=== PATIENT | male | born 1965 | race Caucasian/White ===

== ENCOUNTER 2019-07-19 07:45 | Day surgery (SDC) | payer OTHER ==
[2019-07-17 10:35] VITALS: BMI 32.8
[2019-07-19 08:09] VITALS: TEMP 97.2
[2019-07-19] MEDS ORDERED: LACTATED RINGERS 1,000 ML IV ONE (08:15)
[2019-07-19] MEDS ORDERED: LIDOCAINE 1% 20 ML VIAL (10MG/ML) FOR IV START INTRADERMA ONE (08:15)
[2019-07-19] MEDS ORDERED: LIDOCAINE 1% INJ 10MG/ML (20 ML MDV) ONE (08:33)
[2019-07-19] MEDS ORDERED: PROPOFOL 10 MG/ML 20 ML VIAL IV ONE (08:33)
--- NOTE | 2019-07-19 08:37 | P.GSHP ---
History of Present Illness H&P Date: 07/19/19 Chief Complaint: Screening colonoscopy, epigastric pain This is a 53-year-old male who presents today for screening colonoscopy. Patient also had complaints of epigastric pain. He will undergo EGD as well today. Past Medical History Past Medical History: Chest Pain / Angina, GERD/Reflux, Sleep Apnea/CPAP/BIPAP Additional Past Medical History / Comment(s): STATES CHEST PAIN/HEARTBURN- HAD STRESS TEST WITH DR KINSEY., TAKES TUMS PRN, FEELS LIKE FOOD GETS STUCK AND HAS TO FOLLOW WITH LIQUIDS., BACK PAIN, HERNIATED DISCS, SLEEP APNEA (C-PAP BROKEN), SOME HEARING LOSS DUE TO SERVICE. History of Any Multi-Drug Resistant Organisms: None Reported Past Surgical History: No Surgical Hx Reported Additional Past Anesthesia/Blood Transfusion Reaction / Comment(s): HAS NEVER RECEIVED ANESTHESIA. Past Psychological History: No Psychological Hx Reported Smoking Status: Never smoker Past Alcohol Use History: Daily Additional Past Alcohol Use History / Comment(s): USUALLY DRINKS 1-2 GLASSES WINE OR BEER. Past Drug Use History: None Reported - Past Family History Mother Family Medical History: No Reported History Medications and Allergies Home Medications Medication Instructions Recorded Confirmed Type Calcium Carbonate [Tums] 1,000 mg PO DIRECTED PRN 07/17/19 07/19/19 History Honey B Supplent 1 tab PO DAILY 07/17/19 07/19/19 History Naproxen 500 mg PO DIRECTED PRN 07/17/19 07/19/19 History Otc "Brain Supplement " 1 tab PO DAILY 07/17/19 07/19/19 History Allergies Allergy/AdvReac Type Severity Reaction Status Date / Time No Known Allergies Allergy Verified 07/19/19 08:04 Surgical - Exam Vital Signs Temp Pulse Resp BP Pulse Ox 97.2 F L 74 16 137/86 92 L 07/19/19 08:08 07/19/19 08:08 07/19/19 08:08 07/19/19 08:08 07/19/19 08:08 - General well developed, well nourished, no distress - Eyes PERRL - ENT normal pinna - Neck no masses - Respiratory normal expansion - Cardiovascular Rhythm: regular - Abdomen Abdomen: soft, non tender Assessment and Plan Assessment: We'll perform screening colonoscopy and EGD for epigastric abdominal pain.
--- NOTE | 2019-07-19 08:54 | P.OP ---
Date of Procedure: 07/19/19 Preoperative Diagnosis: GERD Screening colonoscopy Postoperative Diagnosis: Antral gastritis Moderate size hiatal hernia Severe erosive esophagitis Procedure(s) Performed: EGD Screen colonoscopy Anesthesia: MAC Surgeon: Tomas Dickson Pathology: other (Antral esophagus) Condition: stable Disposition: PACU Operative Findings: The patient's placed on the endoscopy table in the lateral position. He received IV sedation. The gastroscope placed oropharynx passed in the esophagus and stomach. Scope was then placed through the pylorus. The first and second portion of duodenum appeared normal. Scope was then brought back the antrum this was mildly inflamed. A biopsies performed. Scope was unretroflexed and remainder stomach appeared normal. The scope was then retroflexed and there was a moderate size hiatal hernia. The GE junction was at 38 cm. The distal esophagus was examined. There was erosive esophagitis. This area is biopsied. The proximal esophagus. Normal. Scope was withdrawn for patient. Next,. Digital rectal examination was performed which revealed no abnormalities. The prostate was symmetrical without nodules. Flexible colonoscope was then placed in the patient's anus and passed throughout the entire colon. The ileocecal valve was visualized. The cecum, ascending, transverse, descending and sigmoid colon were normal. The rectum was normal as well. There were no masses, polyps or diverticula noted in the entire colon. Description of Procedure: The patient's placed on the endoscopy table in the lateral position. He received IV sedation. The gastroscope placed oropharynx passed in the esophagus and stomach. Scope was then placed through the pylorus. The first and second portion of duodenum appeared normal. Scope was then brought back the antrum this was mildly inflamed. A biopsies performed. Scope was unretroflexed and remainder stomach appeared normal. The scope was then retroflexed and there was a moderate size hiatal hernia. The GE junction was at 38 cm. The distal esophagus was examined. There was erosive esophagitis. This area is biopsied. The proximal esophagus. Normal. Scope was withdrawn for patient. Next,. Digital rectal examination was performed which revealed no abnormalities. The prostate was symmetrical without nodules. Flexible colonoscope was then placed in the patient's anus and passed throughout the entire colon. The ileocecal valve was visualized. The cecum, ascending, transverse, descending and sigmoid colon were normal. The rectum was normal as well. There were no masses, polyps or diverticula noted in the entire colon.
[2019-07-19 09:11] VITALS: BP 120/78; PULSE 72; RESP 18
== END 2019-07-19 09:23 | disposition home or self-care (01) ==
LOC: ORWHC2ENDO 07:45
PROVIDERS: ATTEND Surgery
DX: Z12.11 Encounter for screening for malignant neoplasm of colon (principal); K44.9 Diaphragmatic hernia without obstruction or gangrene; K22.10 Ulcer of esophagus without bleeding; K29.50 Unspecified chronic gastritis without bleeding; K21.0 Gastro-esophageal reflux disease with esophagitis; G47.33 Obstructive sleep apnea (adult) (pediatric); Z99.89 Dependence on other enabling machines and devices; F17.200 Nicotine dependence, unspecified, uncomplicated; Z79.1 Long term (current) use of non-steroidal anti-inflammatories (NSAID)
CPT/HCPCS: 88305; 43239; J2001; J2704; G0121

== ENCOUNTER 2022-03-18 09:02 | Day surgery (SDC) | payer OTHER ==
[~2022-03-18 09:02] MED LIST: LACTATED RINGERS 1,000 ML IV SCH
[2022-03-18 09:24] VITALS: TEMP 97.4
[2022-03-18] MEDS ORDERED: PROPOFOL 10 MG/ML 20 ML VIAL IV ONE (10:01)
--- NOTE | 2022-03-18 10:01 | P.GSHP ---
History of Present Illness H&P Date: 03/18/22 Chief Complaint: History of peptic ulcer disease, GERD This a 56 male presents today for EGD. He's had issues with GERD and peptic ulcer disease. Past Medical History Past Medical History: Chest Pain / Angina, GERD/Reflux, Sleep Apnea/CPAP/BIPAP Additional Past Medical History / Comment(s): STATES CHEST PAIN had appt on 03/16/22 regarding sx vacular u/s HEARTBURN- HAS STRESS TEST WITH DR KINSEY.03/30/22, TAKES TUMS omeprazole PRN, FEELS LIKE FOOD GETS STUCK AND HAS TO FOLLOW. WITH LIQUIDS rare now, BACK PAIN,HERNIATED DISCS, SLEEP APNEA (C-PAP BROKEN), SOME HEARING LOSS DUE TO SERVICE. knee caps feel like bone on bone going up steps intermittently. sciatic nerve pain at times relieved by sitting History of Any Multi-Drug Resistant Organisms: None Reported Past Surgical History: No Surgical Hx Reported Past Anesthesia/Blood Transfusion Reactions: No Reported Reaction, Postoperative Nausea & Vomiting (PONV) Additional Past Anesthesia/Blood Transfusion Reaction / Comment(s): HAS NEVER RECEIVED ANESTHESIA. no issues with blood transfusions known. Smoking Status: Never smoker - Past Family History Mother Family Medical History: No Reported History Additional Family Medical History / Comment(s): valve replacement, diverticulitis Father Family Medical History: Seizure Disorder Additional Family Medical History / Comment(s): pace maker defibrillator, valve replacement Medications and Allergies Home Medications Medication Instructions Recorded Confirmed Type Calcium Carbonate [Tums] 500 mg PO DIRECTED PRN 07/17/19 03/18/22 History Omeprazole 20 mg PO DAILY 03/17/22 03/18/22 History Allergies Allergy/AdvReac Type Severity Reaction Status Date / Time No Known Allergies Allergy Verified 03/18/22 09:14 Surgical - Exam Vital Signs Temp Pulse Resp BP Pulse Ox 97.4 F L 74 18 153/92 95 03/18/22 09:22 03/18/22 09:22 03/18/22 09:22 03/18/22 09:22 03/18/22 09:22 - General well developed, well nourished, no distress - Eyes PERRL - ENT normal pinna - Neck no masses - Respiratory normal expansion - Cardiovascular Rhythm: regular - Abdomen Abdomen: soft, non tender Assessment and Plan Assessment: History of peptic ulcer disease. We'll perform EGD.
--- NOTE | 2022-03-18 10:12 | P.OP ---
Date of Procedure: 03/18/22 Preoperative Diagnosis: GERD Postoperative Diagnosis: Antral gastritis Moderate size hiatal hernia Esophagitis Procedure(s) Performed: EGD Anesthesia: MAC Surgeon: Tomas Dickson Pathology: other (Antrum, esophagus) Condition: stable Disposition: PACU Description of Procedure: Patient's placed on the endoscopy table in the lateral position. He received IV sedation. The gastroscope placed oropharynx passed in the esophagus and into the stomach. The scope was then placed through the pylorus. The first and second portion of duodenum appeared normal. Scope was brought back the antrum this was mildly inflamed. A biopsies performed. The scope was then retroflexed and there was a moderate size hiatal hernia. The GE junction was at 38 cm. The distal esophagus appeared inflamed. There is evidence of erosive esophagitis. A biopsy performed. The proximal esophagus appeared normal. Scope withdrawn for patient.
[2022-03-18 10:17] VITALS: RESP 16
[2022-03-18 10:32] VITALS: BP 137/94; PULSE 71
== END 2022-03-18 10:45 | disposition home or self-care (01) ==
LOC: ORWHC2ENDO 09:02
PROVIDERS: ATTEND Surgery
DX: K29.70 Gastritis, unspecified, without bleeding (principal); K21.00 Gastro-esophageal reflux disease with esophagitis, without bleeding; K44.9 Diaphragmatic hernia without obstruction or gangrene; K27.9 Peptic ulcer, site unspecified, unspecified as acute or chronic, without hemorrhage or perforation; G47.30 Sleep apnea, unspecified; K31.9 Disease of stomach and duodenum, unspecified; Z83.79 Family history of other diseases of the digestive system; Z87.11 Personal history of peptic ulcer disease
CPT/HCPCS: 43239; 88305; J2704